=== PATIENT | male | born 1935 | race Caucasian/White ===

== ENCOUNTER → 2017-06-21 | Outpatient (CLI) | payer MEDICARE ==
[~2017-06-21] MED LIST: FURO40TA5 PO; LISI10TA7 PO
== END | disposition home or self-care (01) ==
LOC: RADPV 15:47
PROVIDERS: ATTEND Family Medicine
DX: M17.0 Bilateral primary osteoarthritis of knee (principal); M11.262 Other chondrocalcinosis, left knee; M11.261 Other chondrocalcinosis, right knee

== ENCOUNTER 2017-09-08 13:49 | Emergency (ER) | payer MEDICARE ==
[~2017-09-08] VITALS: Ht 167.6 cm; Wt 86.0 kg
[2017-09-08 13:51] VITALS: BP 102/72
[2017-09-08] MEDS ORDERED: ASPI81 PO (13:57)
[2017-09-08] MEDS ORDERED: DEXAMETHASONE 4 MG TABLET PO ONE (15:00)
[2017-09-08] MEDS ORDERED: DiphenhydrAMINE HCL 25 MG CAPSULE PO ONE (15:15)
== END 2017-09-08 15:18 | disposition home or self-care (01) ==
LOC: EMS 13:49
DX: R21 Rash and other nonspecific skin eruption (principal); I10 Essential (primary) hypertension; Z79.82 Long term (current) use of aspirin
CPT/HCPCS: 99283; J8540

== ENCOUNTER 2017-11-16 16:25 | Emergency (ER) | payer MEDICARE ==
[~2017-11-16] VITALS: Ht 170.2 cm; Wt 86.4 kg
[~2017-11-16 16:25] MED LIST changes: +ASPI81 PO
[2017-11-16] MEDS ORDERED: ACETAMINOPHEN/CODEINE 300-30 MG TABLET PO ONE (17:15)
[2017-11-16 19:15] VITALS: BP 119/72
== END 2017-11-16 19:41 | disposition home or self-care (01) ==
LOC: EMS 16:26
DX: S80.02XA Contusion of left knee, initial encounter (principal); S30.0XXA Contusion of lower back and pelvis, initial encounter; I11.0 Hypertensive heart disease with heart failure; I50.9 Heart failure, unspecified; Z91.018 Allergy to other foods; W18.30XA Fall on same level, unspecified, initial encounter; Y93.01 Activity, walking, marching and hiking; Y92.89 Other specified places as the place of occurrence of the external cause; Y99.8 Other external cause status
CPT/HCPCS: 72220; 99284

== ENCOUNTER 2018-05-14 09:51 | Emergency (ER) | payer MEDICARE ==
[~2018-05-14] VITALS: Ht 165.1 cm; Wt 79.5 kg
[2018-05-14 10:04] LABS: GLUCOSE,POINT OF CARE 110 MG/DL (70-110)
[2018-05-14 10:23] VITALS: BP 110/65
[2018-05-14] MEDS ORDERED: KETOROLAC TROMETHAMINE 10 MG TABLET PO ONE (10:45)
== END 2018-05-14 10:58 | disposition home or self-care (01) ==
LOC: EMS 09:52
DX: S46.002A Unspecified injury of muscle(s) and tendon(s) of the rotator cuff of left shoulder, initial encounter (principal); I11.0 Hypertensive heart disease with heart failure; I50.9 Heart failure, unspecified; J44.9 Chronic obstructive pulmonary disease, unspecified; Z91.018 Allergy to other foods; X58.XXXA Exposure to other specified factors, initial encounter; Y93.89 Activity, other specified; Y92.89 Other specified places as the place of occurrence of the external cause; Y99.8 Other external cause status
CPT/HCPCS: 99282

== ENCOUNTER 2020-06-10 09:10 | Emergency (ER) | payer MEDICARE ==
[~2020-06-10] VITALS: Ht 165.1 cm; Wt 77.3 kg
[~2020-06-10 09:10] MED LIST changes: +ASPI-728 PO; -ASPI81 PO
[2020-06-10 09:13] VITALS: BP 108/76
== END 2020-06-10 11:21 | disposition home or self-care (01) ==
LOC: EMS 09:12
DX: J30.9 Allergic rhinitis, unspecified (principal); I11.0 Hypertensive heart disease with heart failure; I50.9 Heart failure, unspecified; Z79.82 Long term (current) use of aspirin; Z79.899 Other long term (current) drug therapy; Z91.018 Allergy to other foods
CPT/HCPCS: Z7502

== ENCOUNTER 2022-05-27 10:06 | Emergency (ER) | payer MEDICARE ==
[~2022-05-27] VITALS: Ht 165.1 cm; Wt 86.4 kg
[~2022-05-27 10:06] MED LIST changes: +ASPI-1450 PO; -ASPI-728 PO; +LISI10TA24 PO; -LISI10TA7 PO
[2022-05-27 11:20] VITALS: BP 96/59
[2022-05-27] MEDS ORDERED: CEPH-558 PO (12:04)
== END 2022-05-27 12:26 | disposition home or self-care (01) ==
LOC: EMS 10:06
DX: L03.313 Cellulitis of chest wall (principal); I11.0 Hypertensive heart disease with heart failure; I50.9 Heart failure, unspecified; Z86.19 Personal history of other infectious and parasitic diseases; Z91.014 Allergy to mammalian meats
CPT/HCPCS: 99283

== ENCOUNTER 2022-07-19 11:51 | Emergency (ER) | payer MEDICARE ==
[~2022-07-19] VITALS: Ht 170.2 cm; Wt 84.5 kg
[~2022-07-19 11:51] MED LIST changes: +CEPH-558 PO
[2022-07-19] MEDS: CYCLOBENZAPRINE HCL 10 MG TABLET PO ONE (14:57)
[2022-07-19] MEDS: KETOROLAC TROMETHAMINE 30 MG/ML VIAL IM ONE (14:57)
[2022-07-19] MEDS: LIDOCAINE 5% TRANSDERMAL PATCH TD ONE (14:57)
[2022-07-19] MEDS ORDERED: IBUP-2070 PO (15:18)
[2022-07-19] MEDS ORDERED: CYCL-448 PO (15:18)
[2022-07-19] MEDS ORDERED: ACET-3385 PO (15:36)
[2022-07-19 16:01] VITALS: BP 120/85
== END 2022-07-19 16:02 | disposition home or self-care (01) ==
LOC: EMS 11:53
DX: M62.830 Muscle spasm of back (principal); I11.0 Hypertensive heart disease with heart failure; I50.9 Heart failure, unspecified; Z86.19 Personal history of other infectious and parasitic diseases; Z91.014 Allergy to mammalian meats
CPT/HCPCS: 99283; 96372; J1885